=== PATIENT | female | born 1970 | race Caucasian/White ===

== ENCOUNTER 2016-11-26 13:58 | Emergency (ER) | payer OTHER ==
[~2016-11-26] VITALS: Wt 81.8 kg
[~2016-11-26 13:58] MED LIST: ACET500C5 PO; BISA10SU58 PR; LOSA25TA5 PO; ONDA4TAB14 PO; POLY17PO6 PO; TRAM-40 PO
[2016-11-26] MEDS ORDERED: SOD CHLORIDE 0.9% 1,000 ML IV STA ×3 (14:24→17:27)
[2016-11-26 14:49] LABS: ADD SCAN DIFF NO
--- NOTE | 2016-11-26 14:51 | RADRPT ---
PROCEDURE: Chest x-ray CLINICAL INDICATION: Chest pain TECHNIQUE: Chest single view COMPARISON: None FINDINGS: The heart is normal in size. The pulmonary vessels are normal in caliber. The lungs are clear. Th e costophrenic angles are sharp. The visualized bony thorax is unremarkable. IMPRESSION: No acute cardiopulmonary disease. RPTAT: HH .Jimmy Pastor MD, Date Time Electronically viewed and signed by .Jimmy Pastor MD, MD on 11/26/2016 14:51 .W/
[2016-11-26] MEDS ORDERED: LOSA100T7 PO (15:00)
[2016-11-26 15:01] LABS: INR 0.96; PROTIME 12.8 Sec (12.2-14.2)
[2016-11-26] MEDS ORDERED: QUET200T PO (15:01)
[2016-11-26] MEDS ORDERED: QUET100T PO (15:01)
[2016-11-26] MEDS ORDERED: LAMO100T83 PO ×2 (15:01)
[2016-11-26 15:02] LABS: PARTIAL THROMBOPLASTIN TIME 33.4 Sec (25.0-35.0)
[2016-11-26] MEDS ORDERED: FLUO10CA17 PO (15:02)
[2016-11-26] MEDS ORDERED: ALPR0.254 PO (15:02)
[2016-11-26] MEDS ORDERED: SIMV10TA PO (15:02)
[2016-11-26 15:03] LABS: ALBUMIN 4.4 g/dl (3.3-4.9)
[2016-11-26 15:04] LABS: CHLORIDE 100 mmol/L (97-110); POTASSIUM 3.8 mmol/L (3.5-5.1); SODIUM 140 mmol/L (135-144)
[2016-11-26 15:06] LABS: ALBUMIN/GLOBULIN RATIO 1.76; ALKALINE PHOSPHATASE 69 IU/L (42-121); ANION GAP 20 (8-16); ASPARTATE AMINO TRANSFERASE 17 IU/L (15-46); CARBON DIOXIDE 24 mmol/L (21-31); CREATINE KINASE 102 IU/L (23-200); CREATININE 2.54 mg/dl (0.44-1.00); TOTAL PROTEIN 6.9 g/dl (6.1-8.1)
[2016-11-26 15:07] LABS: ALANINE AMINOTRANSFERASE 45 IU/L (13-69); BLOOD UREA NITROGEN 45 mg/dl (7-20); CALCIUM 9.5 mg/dl (8.4-10.2); GLUCOSE 93 mg/dl (70-220)
[2016-11-26 15:10] LABS: BASOPHILS % 0.6 % (0.0-2.0); EOSINOPHILS # 0.2 10^3/ul (0.0-0.5); EOSINOPHILS % 3.2 % (0.0-7.0); HEMATOCRIT 28.6 % (37.0-47.0); HEMOGLOBIN 9.4 g/dl (12.0-16.0); LYMPHOCYTES # 1.7 10^3/ul (0.8-2.9); LYMPHOCYTES % 26.9 % (15.0-51.0); MEAN CORPUSCULAR HGB CONC 32.9 g/dl (32.0-37.0); MEAN CORPUSCULAR VOLUME 91.4 fl (82.0-101.0); MONOCYTE # 0.5 10^3/ul (0.3-0.9); MONOCYTES % 8.4 % (0.0-11.0); NEUTROPHIL # 3.7 10^3/ul (1.6-7.5); NEUTROPHILS % 60.6 % (39.0-77.0); PLATELET COUNT 351 10^3/UL (140-415); RED BLOOD COUNT 3.13 10^6/ul (4.20-5.40); RED CELL DISTRIBUTION WIDTH 13.6 % (11.5-14.5); WHITE BLOOD COUNT 6.2 10^3/ul (4.8-10.8)
[2016-11-26 15:14] LABS: CK-MB 0.84 ng/ml (0.0-2.4)
[2016-11-26 15:15] LABS: B-TYPE NATRIURETIC PEPTIDE 200 PG/ML (0-125)
[2016-11-26 15:31] LABS: TROPONIN-I < 0.012 ng/ml (0.00-0.12)
[2016-11-26 16:36] LABS: INR 1.03; PARTIAL THROMBOPLASTIN TIME 27.4 Sec (25.0-35.0); PROTIME 13.5 Sec (12.2-14.2); PT RATIO 1.1
[2016-11-26] MEDS ORDERED: ACETAMINOPHEN 500 MG TAB PO STA (16:45)
--- NOTE | 2016-11-26 16:51 | RADRPT ---
PROCEDURE: CT Brain without contrast. CLINICAL INDICATION: Trauma to the left forehead and temporal areas after falling. Unsteady gait . TECHNIQUE: A CT of the brain was performed on a GE [employer] 64-slice CT scanner utilizing axial imaging from the skull base through the vertex without IV contrast. Multiplanar reformatted images were made. Images were reviewed on a PACS workstation. The CTDIvol is 39.15 mGy and the DLP is 634 .23 mGycm. One or the following dose reduction techniques were used: -Automated exposure control. -Adjustment of the mA and/or KV according to patient's size. -Use of iterative reconstruction technique COMPARISON: None FINDINGS: There is no intracranial hemorrhage, mass effect, or midline shift. No extra-axial fluid collection is seen. The ventricles and sulci are normal in size and configuration. The density of the brain is normal, and the angulo white matter differentiation appears well-preserved. The visualized paranasal sinuses and osseous structures are grossly unremarkable. IMPRESSION: 1. No evidence of acute intracranial pathology. 2. The brain is normal in appearance. RPTAT: [facility] Physician Teodoro Date Time Electronically viewed and signed by Physician Teodoro on 11/26/2016 16:51 /
--- NOTE | 2016-11-26 17:25 | RADRPT ---
PROCEDURE: CT Abdomen and Pelvis without contrast. CLINICAL INDICATION: Abdominal and pelvic pain. TECHNIQUE: CT scan of the abdomen and pelvis without contrast was performed. Coronal and sagittal reformatted images were obtained from the axial source images. Images were reviewed on a high-resolu tion PACS workstation. Total exam DLP is 1260.42 mGy-cm. CTDIvol is 20.35 mGy. One or more of the following dose reduction techniques were used: Automated exposure control, adjustment of the mA and/ or kV according to patient size, use of iterative reconstruction technique. COMPARISON: None. FINDINGS: There is mild atelectasis at both lung bases posteriorly. The lung bases are otherwise normal. The heart size is normal. There is no pleural effusion or pericardial effusion. There are bilateral p repectoral breast implants. The liver is enlarged and diffusely decreased attenuation consistent with fatty metamorphosis. Ther e is no focal hepatic lesion. The gallbladder is surgically absent with clips noted in the gallbladder bed. The bile ducts are no rmal. The spleen is normal in size. There is no focal splenic lesion. Both adrenals are normal with no enlargement or mass. The pancreas is unremarkable with no mass or evidence of pancreatitis. There is no renal mass or hydronephrosis. There is no renal calculus or ureteral calculus. The abdominal aorta is not dilated. There is calcification in the aorta consistent with atheroscler osis. There is no retroperitoneal lymphadenopathy or mass. There is no pelvic lymphadenopathy or mass. The urinary bladder is distended but otherwise unremarkable with no mass or calculus. The periappendiceal region is unremarkable with no evidence of appendicitis. There is gastric distension, predominately with food and fluid. The bowel and mesentery are otherwi se normal. There is no free fluid or free gas. There are mild degenerative changes of the spine. There is no fracture or lytic lesion. IMPRESSION: 1. Mild atelectasis at the lung bases posteriorly. 2. Bilateral prepectoral breast implants. 3. Hepatomegaly. 4. Fatty metamorphosis of the liver. 5. Status post cholecystectomy. 6. Atherosclerosis. 7. Distended urinary bladder. 8. Gastric distension, predominately with fluid and fluid. Clinical correlation advised. 9. Mild degenerative changes of the spine. RPTAT: QQ .Abdelrahman Colon MD, MD Date Time Electronically viewed and signed by .Abdelrahman Colon MD, on 11/26/2016 17:24 .R/
[2016-11-26 18:02] LABS: ADD UMIC NO; URINE BILIRUBIN (Dip) NEGATIVE (NEGATIVE); URINE BLOOD (Dip) NEGATIVE (NEGATIVE); URINE COLOR LT. YELLOW (YELLOW); URINE GLUCOSE (Dip) NEGATIVE (NEGATIVE); URINE KETONES (Dip) NEGATIVE (NEGATIVE); URINE LEUKOCYTE ESTERASE (Dip) NEGATIVE (NEGATIVE); URINE NITRITE (Dip) NEGATIVE (NEGATIVE); URINE TOTAL PROTEIN (Dip) NEGATIVE (NEGATIVE); URINE UROBILINOGEN (Dip) 0.2 E.U./dL (0.1-1.0)
[2016-11-26 18:11] VITALS: TEMP 98.4
[2016-11-26 18:59] VITALS: BP 98/51; PULSE 54; RESP 16
--- NOTE | 2016-11-26 19:51 | ERD ---
ER Documentation Chief Complaint Date/Time DATE: 11/26/16 TIME: 19:46 Chief Complaint SYNCOPE LAST NIGHT AFTER A FALL. NO NEURO DEFICIT NOW. DIZZINESS NOTED HPI This is a 46-year-old female who presents to the emergency room after a ground- level fall she had last night. The patient states that she fainted while she was walking. The patient states that she is feeling dizzy at this time and denies any chest pain, palpitations, blurred vision or shortness of breath at this time. The patient denies any other trauma to anywhere in her body. ROS All systems reviewed and are negative except as per history of present illness. Medications Home Meds Reported Medications Fluoxetine Hcl* (Fluoxetine Hcl*) 10 Mg Capsule, 10 MG PO DAILY, CAP 11/26/16 Simvastatin* (Zocor*) 10 Mg Tablet, 10 MG PO QHS, #30 TAB 11/26/16 Alprazolam* (Alprazolam*) 0.25 Mg Tablet, 0.25 MG PO QHS Y for ANXIETY, TAB 11/26/16 Quetiapine Fumarate* (Seroquel*) 200 Mg Tablet, 200 MG PO HS, #30 TAB 11/26/16 Quetiapine Fumarate* (Seroquel*) 100 Mg Tablet, 100 MG PO QAM, #30 TAB 11/26/16 Lamotrigine* (Lamictal*) 100 Mg Tablet, 200 MG PO QHS, TAB 11/26/16 Lamotrigine* (Lamictal*) 100 Mg Tablet, 100 MG PO QAM, TAB 11/26/16 Losartan Potassium* (Losartan Potassium*) 100 Mg Tablet, 100 MG PO DAILY, TAB 11/26/16 Discontinued Reported Medications Losartan Potassium* (Losartan Potassium*) Unknown Strength Tablet, PO DAILY, TAB 06/10/16 Discontinued Scripts Acetaminophen* (Tylophen*) 500 Mg Capsule, 1 CAP PO Q6H Y for PAIN AND OR ELEVATED TEMP, #20 CAP Prov:PARAS HAGEN NP 06/10/16 Ondansetron (Ondansetron Odt) 4 Mg Tab.rapdis, 4 MG PO Q8 Y for NAUSEA AND/OR VOMITING, #30 TAB Prov:PARAS HAGEN NP 06/10/16 Bisacodyl* (Dulcolax*) 10 Mg/Supp.rect Supp.rect, 10 MG HI DAILY, #14 SUPP.RECT Prov:PINKY MONTOYA MD 01/21/16 Polyethylene Glycol* (Miralax*) 17 Gm Powd.pack, 17 GM PO DAILY, #30 PACKET Prov:PINKY MONTOYA MD 01/21/16 Tramadol Hcl* (Ultram*) 50 Mg Tablet, 50 MG PO Q6H Y for PAIN, #16 TAB Prov:PINKY MONTOYA MD 01/21/16 Allergies Allergies: Coded Allergies: No Known Allergy (Unverified , 01/21/16) PMhx/Soc History of Surgery: Yes (cholecystectomy, fallopian tube repair, ovarian cyst removal) Anesthesia Reaction: No Hx Neurological Disorder: No Hx Respiratory Disorders: No Hx Cardiac Disorders: Yes (HTN) Hx Psychiatric Problems: No Hx Miscellaneous Medical Probl: Yes (ANXIETY; DEPRESSION) Hx Alcohol Use: No Hx Substance Use: No Hx Tobacco Use: No Smoking Status: Never smoker Physical Exam Vitals Vital Signs Date Time Temp Pulse Resp B/P Pulse Ox O2 Delivery O2 Flow Rate FiO2 11/26/16 18:59 54 16 98/51 98 Nasal Cannula 2.0 11/26/16 18:40 54 16 99/51 97 Room Air 11/26/16 18:11 98.4 51 16 90/54 100 Nasal Cannula 2.0 11/26/16 16:15 97.7 86 18 105/53 100 Nasal Cannula 2.0 11/26/16 14:48 Nasal Cannula 2 11/26/16 14:02 98.8 65 20 80/41 98 Physical Exam INITIAL VITAL SIGNS: Reviewed by me GENERAL: The patient is well developed and appropriate for usual state of health in no apparent distress HEENT: Dry mucous membranes, pupils equal, round, and reactive to light. EOMI. There is no scleral icterus. NECK: C-spine is soft and supple, there is no meningismus. There is no cervical lymphadenopathy. LUNGS: Clear to auscultation bilaterally. There are no rales, wheezes or rhonchi. HEART: Regular rate and rhythm, no murmurs, clicks, rubs or gallops. ABDOMEN: Soft, non-tender, non-distended. There are bowel sounds in all four quadrants. No rebound or guarding. EXTREMITIES: There is no peripheral cyanosis or edema. No focal swelling or erythema. NEUROLOGICAL: The patient moves all four extremities with 5/5 strength. Cranial nerves II - XII are intact. Normal gait. Alert and oriented SKIN: There is no apparent rash or petechiae. HEME/LYMPHATIC: There is no evidence of excessive bruising or lymphedema. PSYCHIATRIC: The patient does have an anxious affect Result Diagram: 11/26/16 1434 11/26/16 1434 Results 24 hrs Laboratory Tests Test 11/26/16 14:34 11/26/16 15:50 11/26/16 17:04 11/26/16 18:00 Activated Partial Thromboplast Time 33.4Sec 27.4Sec Alanine Aminotransferase (ALT/SGPT) 45IU/L Albumin 4.4g/dl Albumin/Globulin Ratio 1.76 Alkaline Phosphatase 69IU/L Anion Gap 20 Aspartate Amino Transf (AST/SGOT) 17IU/L B-Type Natriuretic Peptide 200PG/ML Basophils # 0.010^3/ul Basophils % 0.6% Blood Urea Nitrogen 45mg/dl Calcium Level 9.5mg/dl Carbon Dioxide Level 24mmol/L Chloride Level 100mmol/L Creatine Kinase 102IU/L Creatine Kinase Index 0.8 Creatinine 2.54mg/dl Creatinine Kinase MB (Mass) 0.84ng/ml Direct Bilirubin 0.00mg/dl Eosinophils # 0.210^3/ul Eosinophils % 3.2% Globulin 2.50g/dl Glucose Level 93mg/dl Hematocrit 28.6% Hemoglobin 9.4g/dl INR International Normalized Ratio 0.96 1.03 Indirect Bilirubin 0.0mg/dl Lymphocytes # 1.710^3/ul Lymphocytes % 26.9% Mean Corpuscular Hemoglobin 30.0pg Mean Corpuscular Hemoglobin Concent 32.9g/dl Mean Corpuscular Volume 91.4fl Mean Platelet Volume 10.0fl Monocytes # 0.510^3/ul Monocytes % 8.4% Neutrophils # 3.710^3/ul Neutrophils % 60.6% Nucleated Red Blood Cells # 0.010^3/ul Nucleated Red Blood Cells % 0.0/100WBC Platelet Count 39693^3/UL Potassium Level 3.8mmol/L Prothrombin Time 12.8Sec 13.5Sec Prothrombin Time Ratio 1.0 1.1 Red Blood Count 3.1310^6/ul Red Cell Distribution Width 13.6% Sodium Level 140mmol/L Total Bilirubin 0.0mg/dl Total Protein 6.9g/dl Troponin I < 0.012ng/ml White Blood Count 6.210^3/ul Lactic Acid Level 0.8mmol/L 0.6mmol/L Urine Bilirubin NEGATIVE Urine Clarity CLEAR Urine Color LT. YELLOW Urine Glucose NEGATIVE% Urine Hemoglobin NEGATIVE Urine Ketones NEGATIVE Urine Leukocyte Esterase NEGATIVE Urine Nitrite NEGATIVE Urine Specific [place] <=1.005 Urine Total Protein NEGATIVE Urine Urobilinogen 0.2 E.U./dL Urine pH 6.0 Current Medications Medications (Trade) Dose Ordered Sig/Vinicio Route PRN Reason Start Time Stop Time Status Last Admin Dose Admin Sodium Chloride 1,000 ml @ 1,000 mls/hr Q1H STAT IV 11/26/16 14:24 11/26/16 15:23 DC 11/26/16 14:41 Sodium Chloride (NS) 1,000 ml @ 1,000 mls/hr Q1H STAT IV 11/26/16 15:45 11/26/16 16:44 DC 11/26/16 15:58 Acetaminophen 1000 mg 1,000 mg ONCE STAT PO 11/26/16 16:45 11/26/16 16:46 DC 11/26/16 17:40 Sodium Chloride (NS) 1,000 ml @ 1,000 mls/hr Q1H STAT IV 11/26/16 17:27 11/26/16 18:26 DC 11/26/16 17:41 Procedures/MDM EKG: Rate/Rhythm: [Normal Sinus Rhythm] QRS, ST, T-waves: [No changes consistent w/ acute ischemia] Impression: [No evidence of ischemia or arrhythmia] Chest X-ray 1V Interpreted by me: Soft Tissue: No acute abnormalities Bones: No acute abnormalities Mediastinum/Cardiac Silhouette/Lungs: [No acute abnormalities] CT brain without: 1. No evidence of acute intracranial pathology. 2. The brain is normal in appearance. CT abdomen pelvis without: 1. Mild atelectasis at the lung bases posteriorly. 2. Bilateral prepectoral breast implants. 3. Hepatomegaly. 4. Fatty metamorphosis of the liver. 5. Status post cholecystectomy. 6. Atherosclerosis. 7. Distended urinary bladder. 8. Gastric distension, predominately with fluid and fluid. Clinical correlation advised. 9. Mild degenerative changes of the spine. This 46-year-old female presents to the emergency room for evaluation of a syncopal episode. When I evaluated this patient she was hypotensive with a systolic blood pressure in the low 80s. She did complain of dizziness. This patient states that she is taking a hypertensive medication. The patient denies any headaches or numbness or tingling. The patient had lab work drawn which shows a hemoglobin of 9.8. She continued to remain hypotensive despite 1 L of fluid. Rectal exam was negative. A CT of the head and abdomen pelvis were obtained which were essentially normal. The patient was given an additional 2-1/2 L of fluid. Upon my reevaluation this patient's blood pressure is a 98/41. She has no focal neurological deficits. I did contact her primary care physician, Dr. Quintana and I discussed this patient's lab work including a creatinine of 2.3. He states the patient can follow-up as an outpatient. The patient feels comfortable doing so. The patient will be discharged at this time with instructions to return to the ER if her symptoms worsen. The patient did verbalize understanding. She has no signs of tachycardia or hypoxia which would be concerning for pulmonary embolism. No widening of the mediastinum on chest x-ray, no signs of dissection on CT of the abdomen and pelvis. Departure Diagnosis: Primary Impression: Syncope and collapse Additional Impressions: Hypotension Renal insufficiency Normocytic anemia Condition: Stable ALEXANDRU GONZALEZ DO Nov 26, 2016 19:51
== END 2016-11-26 20:20 | disposition home or self-care (01) ==
LOC: E/R 13:58
DX: R55 Syncope and collapse (principal); I95.9 Hypotension, unspecified; N28.9 Disorder of kidney and ureter, unspecified; D64.9 Anemia, unspecified; I10 Essential (primary) hypertension
CPT/HCPCS: 36415; 70450; 71010; 74176; 80053; 81003; 82550; 82553; 83605; 83880; 84484; 85025; 85610; 85730; 87040; 96360; 96361; J7030; Z7502; Z7610; 93005

== ENCOUNTER 2016-11-27 12:40 | Emergency (ER) | payer OTHER ==
[~2016-11-27] VITALS: Ht 160 cm; Wt 88.0 kg
[~2016-11-27 12:40] MED LIST changes: -ACET500C5 PO; +ALPR0.254 PO; -BISA10SU58 PR; +FLUO10CA17 PO; +LAMO100T83 PO; +LOSA100T7 PO; -LOSA25TA5 PO; -ONDA4TAB14 PO; -POLY17PO6 PO; +QUET100T PO; +QUET200T PO; +SIMV10TA PO; -TRAM-40 PO
[2016-11-27 12:43] VITALS: Ht 160 cm; Wt 88.0 kg
[2016-11-27 14:44] VITALS: BP 103/51; PULSE 67
[2016-11-27] MEDS ORDERED: SOD CHLORIDE 0.9% 1,000 ML IV ONE (15:30)
[2016-11-27 15:53] LABS: ADD SCAN DIFF NO
[2016-11-27 15:55] LABS: BASOPHIL # 0.1 10^3/ul (0.0-0.1); BASOPHILS % 0.7 % (0.0-2.0); EOSINOPHILS # 0.3 10^3/ul (0.0-0.5); EOSINOPHILS % 3.4 % (0.0-7.0); HEMOGLOBIN 9.6 g/dl (12.0-16.0); LYMPHOCYTES % 24.8 % (15.0-51.0); MEAN CORPUSCULAR HEMOGLOBIN 29.6 pg (29.0-33.0); MEAN CORPUSCULAR VOLUME 92.6 fl (82.0-101.0); MEAN PLATELET VOLUME 10.4 fl (7.4-10.4); MONOCYTE # 0.5 10^3/ul (0.3-0.9); MONOCYTES % 5.7 % (0.0-11.0); NEUTROPHIL # 5.3 10^3/ul (1.6-7.5); NEUTROPHILS % 64.9 % (39.0-77.0); PLATELET COUNT 374 10^3/UL (140-415); RED BLOOD COUNT 3.24 10^6/ul (4.20-5.40); RED CELL DISTRIBUTION WIDTH 13.8 % (11.5-14.5); WHITE BLOOD COUNT 8.2 10^3/ul (4.8-10.8)
[2016-11-27 16:09] LABS: POTASSIUM 4.3 mmol/L (3.5-5.1)
[2016-11-27 16:11] LABS: ALBUMIN/GLOBULIN RATIO 1.53; CREATININE 1.06 mg/dl (0.44-1.00); TOTAL PROTEIN 6.6 g/dl (6.1-8.1)
[2016-11-27 16:12] LABS: CALCIUM 9.2 mg/dl (8.4-10.2)
[2016-11-27] MEDS ORDERED: IBUPROFEN 600 MG TAB PO ONE (16:30)
--- NOTE | 2016-11-27 16:36 | ERA ---
ER Documentation Chief Complaint Date/Time DATE: 11/27/16 TIME: 16:33 Chief Complaint CAME IN VIA INTAKE DUE DIZZINESS AND FALL HPI Patient is a 46-year-old female who presents complaining of dizziness one day after being discharged from the ER patient was seen in the ER yesterday for syncopal episode and low blood pressure. Today she is complaining of low blood pressure and dizziness. Claims that her blood pressure at home was 60/40 on admission today her blood pressure was 103/51. Upon reevaluation we noted the blood pressure to be 107/58. Patient is on many medications, and has not made any attempt to follow-up with her primary care provider as directed. Patient is with her daughter today who is her transport. Patient seems worried but does not have any other complaints. ROS All systems reviewed and are negative except as per history of present illness. Medications Home Meds Reported Medications Fluoxetine Hcl* (Fluoxetine Hcl*) 10 Mg Capsule, 10 MG PO DAILY, CAP 11/26/16 Simvastatin* (Zocor*) 10 Mg Tablet, 10 MG PO QHS, #30 TAB 11/26/16 Alprazolam* (Alprazolam*) 0.25 Mg Tablet, 0.25 MG PO QHS Y for ANXIETY, TAB 11/26/16 Quetiapine Fumarate* (Seroquel*) 200 Mg Tablet, 200 MG PO HS, #30 TAB 11/26/16 Quetiapine Fumarate* (Seroquel*) 100 Mg Tablet, 100 MG PO QAM, #30 TAB 11/26/16 Lamotrigine* (Lamictal*) 100 Mg Tablet, 200 MG PO QHS, TAB 11/26/16 Lamotrigine* (Lamictal*) 100 Mg Tablet, 100 MG PO QAM, TAB 11/26/16 Losartan Potassium* (Losartan Potassium*) 100 Mg Tablet, 100 MG PO DAILY, TAB 11/26/16 Discontinued Reported Medications Losartan Potassium* (Losartan Potassium*) Unknown Strength Tablet, PO DAILY, TAB 06/10/16 Discontinued Scripts Acetaminophen* (Tylophen*) 500 Mg Capsule, 1 CAP PO Q6H Y for PAIN AND OR ELEVATED TEMP, #20 CAP Prov:PARAS HAGEN NP 06/10/16 Ondansetron (Ondansetron Odt) 4 Mg Tab.rapdis, 4 MG PO Q8 Y for NAUSEA AND/OR VOMITING, #30 TAB Prov:PARAS HAGEN NP 06/10/16 Bisacodyl* (Dulcolax*) 10 Mg/Supp.rect Supp.rect, 10 MG DE DAILY, #14 SUPP.RECT Prov:PINKY MONTOYA MD 01/21/16 Polyethylene Glycol* (Miralax*) 17 Gm Powd.pack, 17 GM PO DAILY, #30 PACKET Prov:PINKY MONTOYA MD 01/21/16 Tramadol Hcl* (Ultram*) 50 Mg Tablet, 50 MG PO Q6H Y for PAIN, #16 TAB Prov:PINKY MONTOYA MD 01/21/16 Allergies Allergies: Coded Allergies: No Known Allergy (Unverified , 01/21/16) PMhx/Soc History of Surgery: Yes (cholecystectomy, fallopian tube repair, ovarian cyst removal) Anesthesia Reaction: No Hx Neurological Disorder: No Hx Respiratory Disorders: No Hx Cardiac Disorders: Yes (HTN) Hx Psychiatric Problems: No Hx Miscellaneous Medical Probl: Yes (ANXIETY; DEPRESSION) Hx Alcohol Use: No Hx Substance Use: No Hx Tobacco Use: No Physical Exam Vitals Vital Signs Date Time Temp Pulse Resp B/P Pulse Ox O2 Delivery O2 Flow Rate FiO2 11/27/16 14:44 67 103/51 11/27/16 14:44 64 95/51 11/27/16 12:43 98.2 73 18 104/52 98 Physical Exam Const: Worried 46-year-old female in a wheelchair. Head: Atraumatic Eyes: Normal Conjunctiva ENT: Normal External Ears, Nose and Mouth. Neck: Full range of motion..~ No meningismus. Resp: Clear to auscultation bilaterally Cardio: Regular rate and rhythm, no murmurs Abd: Soft, non tender, non distended. Normal bowel sounds Skin: No petechiae or rashes Back: No midline or flank tenderness Ext: No cyanosis, or edema Neur: Awake and alert Psych: Normal Mood and Affect Result Diagram: 11/27/16 1540 11/27/16 1540 Results 24 hrs Laboratory Tests Test 11/27/16 15:40 Alanine Aminotransferase (ALT/SGPT) 33IU/L Albumin 4.0g/dl Albumin/Globulin Ratio 1.53 Alkaline Phosphatase 62IU/L Anion Gap 16 Aspartate Amino Transf (AST/SGOT) 17IU/L Basophils # 0.110^3/ul Basophils % 0.7% Blood Urea Nitrogen 20mg/dl Calcium Level 9.2mg/dl Carbon Dioxide Level 23mmol/L Chloride Level 108mmol/L Creatinine 1.06mg/dl Direct Bilirubin 0.00mg/dl Eosinophils # 0.310^3/ul Eosinophils % 3.4% Globulin 2.60g/dl Glucose Level 95mg/dl Hematocrit 30.0% Hemoglobin 9.6g/dl Indirect Bilirubin 0.0mg/dl Lymphocytes # 2.010^3/ul Lymphocytes % 24.8% Mean Corpuscular Hemoglobin 29.6pg Mean Corpuscular Hemoglobin Concent 32.0g/dl Mean Corpuscular Volume 92.6fl Mean Platelet Volume 10.4fl Monocytes # 0.510^3/ul Monocytes % 5.7% Neutrophils # 5.310^3/ul Neutrophils % 64.9% Nucleated Red Blood Cells # 0.010^3/ul Nucleated Red Blood Cells % 0.0/100WBC Platelet Count 07198^3/UL Potassium Level 4.3mmol/L Red Blood Count 3.2410^6/ul Red Cell Distribution Width 13.8% Sodium Level 143mmol/L Total Bilirubin 0.0mg/dl Total Protein 6.6g/dl White Blood Count 8.210^3/ul Current Medications Medications (Trade) Dose Ordered Sig/Vinicio Route PRN Reason Start Time Stop Time Status Last Admin Dose Admin Sodium Chloride (NS) 1,000 ml @ 1,000 mls/hr Q1H ONCE IV 11/27/16 15:30 11/27/16 16:29 DC 11/27/16 15:42 Ibuprofen (Motrin) 600 mg ONCE ONCE PO 11/27/16 16:30 11/27/16 16:31 DC 11/27/16 16:16 Procedures/MDM Physical exam was unremarkable. During the patient's medications list she is on a multitude of psychiatric medications including but may not be limited to the following: Lamictal, Xanax, Seroquel, and Floxin. Patient is also on losartan for blood pressure on an unknown dose. Patient takes blood pressure at home regularly and says it is often low. Always seems to be higher when she goes the doctor white coat "hypertension" versus home blood pressure machine malfunction. At this time I began his CBC and CMP as recommended by Dr. Vance. Give the patient 1 bolus of normal saline. Upon reevaluation the patient still seemed worried had no concerning signs of predisposition to syncope. This studies came to nearly the same results as stated last night. After talking to Dr. Wagner have agreed that the saline bolus rechecking the blood pressure discharged home will suffice. Departure Condition: Stable Additional Instructions: Follow up with primary care provider [facility]. Have your primary care provider or psychiatric doctor review your meds. ANGELO POLO PA-C Nov 27, 2016 16:36
== END 2016-11-27 18:05 | disposition home or self-care (01) ==
LOC: FTE 12:40
DX: R42 Dizziness and giddiness (principal); I10 Essential (primary) hypertension
CPT/HCPCS: 36415; 80053; 85025; J7030; Z7502; Z7610

== ENCOUNTER 2017-01-22 11:33 | Emergency (ER) | payer OTHER ==
[~2017-01-22] VITALS: Ht 160 cm; Wt 85.0 kg
[2017-01-22 11:35] VITALS: Ht 160 cm; Wt 85.0 kg
[2017-01-22] MEDS ORDERED: HYDR-906 PO (12:22)
--- NOTE | 2017-01-22 12:29 | ERD ---
ER Documentation Chief Complaint Date/Time DATE: 01/22/17 TIME: 12:24 Chief Complaint right knee pain x 1 month HPI This 46-year-old male presents with right knee pain after twisting injury approximate 1 month ago. She was seen in another hospital. She has an orthopedic appointment approximately 3 weeks for what appears to be a medial meniscal injury. She denies fevers, redness, calf swelling, shortness of breath , deficits. Patient is here for pain and significant weight for her orthopedic appointment. She is hoping that something could be done sooner for coming to the ER and is requesting orthopedic evaluation. She denies any new injury. ROS All systems reviewed and are negative except as per history of present illness. Medications Home Meds Active Scripts Hydrocodone/Acetaminophen (Taylor 5-325 Tablet) 1 Each Tablet, 1 TAB PO Q6H Y for PAIN, #15 TAB Prov:PINKY MONTOYA MD 01/22/17 Reported Medications Fluoxetine Hcl* (Fluoxetine Hcl*) 10 Mg Capsule, 10 MG PO DAILY, CAP 11/26/16 Simvastatin* (Zocor*) 10 Mg Tablet, 10 MG PO QHS, #30 TAB 11/26/16 Alprazolam* (Alprazolam*) 0.25 Mg Tablet, 0.25 MG PO QHS Y for ANXIETY, TAB 11/26/16 Quetiapine Fumarate* (Seroquel*) 200 Mg Tablet, 200 MG PO HS, #30 TAB 11/26/16 Quetiapine Fumarate* (Seroquel*) 100 Mg Tablet, 100 MG PO QAM, #30 TAB 11/26/16 Lamotrigine* (Lamictal*) 100 Mg Tablet, 200 MG PO QHS, TAB 11/26/16 Lamotrigine* (Lamictal*) 100 Mg Tablet, 100 MG PO QAM, TAB 11/26/16 Losartan Potassium* (Losartan Potassium*) 100 Mg Tablet, 100 MG PO DAILY, TAB 11/26/16 Allergies Allergies: Coded Allergies: No Known Allergy (Unverified , 01/21/16) PMhx/Soc History of Surgery: Yes (cholecystectomy, fallopian tube repair, ovarian cyst removal) Anesthesia Reaction: No Hx Neurological Disorder: No Hx Respiratory Disorders: No Hx Cardiac Disorders: Yes (HTN) Hx Psychiatric Problems: No Hx Miscellaneous Medical Probl: Yes (ANXIETY; DEPRESSION) Hx Alcohol Use: No Hx Substance Use: No Hx Tobacco Use: No Smoking Status: Never smoker Physical Exam Vitals Vital Signs Date Time Temp Pulse Resp B/P Pulse Ox O2 Delivery O2 Flow Rate FiO2 01/22/17 11:35 97.6 78 18 112/62 99 Physical Exam Const: [] Alert, [id number]. Head: Atraumatic Eyes: Normal Conjunctiva ENT: Normal External Ears, Nose and Mouth. Neck: Full range of motion..~ No meningismus. Resp: Clear to auscultation bilaterally Cardio: Regular rate and rhythm, no murmurs Abd: Soft, non tender, non distended. Normal bowel sounds Skin: No petechiae or rashes Back: No midline or flank tenderness Ext: No cyanosis, or edema producing tenderness in the right medial joint line without effusion, deformities. There is no calf swelling or Homans sign. The right lower extremities reveals intact. Neur: Awake and alert Psych: Normal Mood and Affect Results 24 hrs Current Medications Medications (Trade) Dose Ordered Sig/Vinicio Route PRN Reason Start Time Stop Time Status Last Admin Dose Admin Acetaminophen/ Hydrocodone Bitart (Taylor (5/325)) 1 tab ONCE ONCE PO 01/22/17 12:30 01/22/17 12:31 01/22/17 12:22 Procedures/MDM Patient presents with right knee pain for last month and exam suggestive of a medial meniscal injury. Patient is frustrated that her orthopedic appointment is not for 3 weeks but patient does not have an emergent condition warranting emergent orthopedic evaluation or emergent MRI. Patient was given Taylor 5 mg by mouth and was given reassurance that patient does not have an emergent condition that needs urgent treatment. Patient was given a short course of Taylor and instructed to follow-up with orthopedics as scheduled. She is otherwise given additional orthopedic resources but again given the patient's insurance status will likely need authorization. Patient was advised to return for fevers, redness, new worsening symptoms is no evidence to suggest fracture, dislocation, septic arthritis, DVT, cellulitis, additional emergent KNEE pain conditions. Departure Diagnosis: Primary Impression: Knee pain Laterality: right Chronicity: unspecified Qualified Code: M25.561 - Right knee pain, unspecified chronicity Condition: Stable Patient Instructions: Knee Pain, Meniscus Injury (Possible), Knee Pain, Uncertain Cause Referrals: MAKI GRIFFIN MD, HRAIR E MD Additional Instructions: Likely meniscal injury. Recommend outpatient follow-up with orthopedist as scheduled. Likely need authorization from primary doctor for sooner visit. PINKY MONTOYA MD January 22, 2017 12:29
[2017-01-22] MEDS ORDERED: HYDROCODONE/APAP (5/325) TAB PO ONE (12:30)
== END 2017-01-22 13:28 | disposition home or self-care (01) ==
LOC: FTE 11:33
DX: M25.561 Pain in right knee (principal); I10 Essential (primary) hypertension
CPT/HCPCS: Z7502; Z7610; 99283